=== PATIENT | female | born 1995 | race Caucasian/White ===

== ENCOUNTER 2016-09-24 00:39 | Emergency (ER) | payer OTHER ==
[~2016-09-24] VITALS: Ht 162.6 cm; Wt 62.0 kg
--- NOTE | 2016-09-24 01:40 | PD ---
HPI Chief Complaint: Psychiatric Symptoms Time Seen by Provider: 01:35 (Arsh Palm) Time Seen by Provider: 01:34 (Bradley Ty MD) Travel History International Travel<30 days: No Contact w/Intl Traveler<30days: No Traveled to known affect area: No (Arsh Palm) History of Present Illness HPI 21-year-old white female presents to emergency department under Purvis act by PD. The patient was found heavily intoxicated. She was unable to care for herself. On interviewing the patient they asked whether she was suicidal or not. Patient implied that she was. The patient here denies this. She states that she is visiting from [place]. She is down with her boyfriend. She states that they had gotten . She does admit to drinking heavily. She does not know where she is. She is refusing to cooperate. She is using foul language towards the staff and myself. She states that she would like to go home. I explained to there that she is here under Purvis act. The patient still refusing to cooperate. She denies any toxic ingestions. The patient denies any suicidal or homicidal ideation. (Arsh Palm) HPI Please refer to advanced practitioner notes. (Bradley Ty MD) [facility] Past Medical History Medical History: Denies Significant Hx Tetanus Vaccination: Unknown ?: Unknown (Arsh Palm) Past Surgical History Surgical History: Unable to Obtain (Arsh Palm) Social History Alcohol Use: Yes (4 times a day) (Arsh Palm) Tobacco Use: No (unable to determine pt has left) (Bradley Ty MD) Allergies-Medications (Allergen,Severity, Reaction): Coded Allergies: Sulfa (Verified Allergy, Severe, 09/24/16) Review of Systems ROS Limitations: Intoxication, Uncooperative (Arsh Palm) Physical Exam Narrative GENERAL: Well-nourished, well-developed patient. The patient is intoxicated. Her speech is slurred. She is uncooperative. There is no evidence of trauma. SKIN: Warm and dry. HEAD: Normocephalic and atraumatic. EYES: No scleral icterus. No injection or drainage. ENT: No nasal drainage noted. Mucous membranes pink. Airway patent. NECK: Supple, trachea midline. Moves head freely without obvious discomfort. CARDIOVASCULAR: Regular rate and rhythm without murmurs, gallops, or rubs. RESPIRATORY: Breath sounds equal bilaterally. No accessory muscle use. GASTROINTESTINAL: Abdomen soft, non-tender, nondistended. EXTREMITIES: No cyanosis or edema. BACK: Nontender without obvious deformity. No CVA tenderness. NEURO: Patient is alert and oriented. no sensorimotor deficits. Nonfocal. Slurred speech. Ataxic. PSYCH: No delusions. No auditory or visual hallucinations. (Arsh Palm ) Narrative Please refer to advanced practitioner notes. (Bradley Ty MD) Data Data Orders Complete Blood Count With Diff (09/24/16 01:01) Comprehensive Metabolic Panel (09/24/16 01:01) Drug Screen, Random Urine (09/24/16 01:01) Ed Urine Pregnancytest Poc (09/24/16 01:01) Alcohol (Ethanol) (09/24/16 01:01) Psych Screen (09/24/16 01:01) Diet Regular Basic (09/24/16 Breakfast) (Bradley Ty MD) MDM Medical Decision Making Medical Screen Exam Complete: Yes Emergency Medical Condition: Yes Medical Record Reviewed: Yes Differential Diagnosis MDM: High Differential diagnoses: Schizophrenia, schizoaffective disorder, bipolar, anxiety, depression, adjustment reaction, mood disorder NOS, ODD, depressive disorder NOS, dementia, dementia with agitation, psychosis NOS, substance induced mood disorder, intermittent explosive disorder, Asperger syndrome, infection,electrolyte abnormality, malingering. Narrative Course Mental health screening discussed with the patient. Psychiatric screen ordered. The patient appears to be intoxicated. She is uncooperative and belligerent. There is no evidence of trauma. I suspect this is all alcohol related. The patient will be allowed to rest in the examination room and sober up. The patient will be evaluated by the psych screener in the morning when she appears more sober. I see no reason at this point to force her for laboratory testing. This is intoxication, substance induced mood disorder (Arsh Palm) Medical Screen Exam Complete: Yes Emergency Medical Condition: Yes Differential Diagnosis Please refer to advanced practitioner notes. Narrative Course Please refer to advanced practitioner notes. (Bradley Ty MD) Diagnosis Primary Impression: Alcohol intoxication Qualified Code: F10.129 - Alcohol intoxication, with unspecified complication Additional Impression: Substance induced mood disorder Condition: Stable ArpitaArsh BEAN Sep 24, 2016 01:40 Bradley Ty MD Sep 29, 2016 19:12 Basophils (%) (Auto) 0.5 % Neutrophils # (Auto) 4.6 TH/MM3 Lymphocytes # (Auto) 2.3 TH/MM3 Monocytes # (Auto) 0.3 TH/MM3 Eosinophils # (Auto) 0.0 TH/MM3 Basophils # (Auto) 0.0 TH/MM3 CBC Comment DIFF FINAL Differential Comment Sodium Level 144 MEQ/L Potassium Level 3.9 MEQ/L Chloride Level 109 MEQ/L Carbon Dioxide Level 24.4 MEQ/L Anion Gap 11 MEQ/L Blood Urea Nitrogen 4 MG/DL Creatinine 0.70 MG/DL Estimat Glomerular Filtration 105 ML/MIN Rate Random Glucose 93 MG/DL Calcium Level 8.9 MG/DL Total Bilirubin 0.4 MG/DL Aspartate Amino Transf 22 U/L (AST/SGOT) Alanine Aminotransferase 23 U/L (ALT/SGPT) Alkaline Phosphatase 87 U/L Total Protein 8.5 GM/DL Albumin 4.7 GM/DL Urine Opiates Screen NEG Urine Barbiturates Screen NEG Urine Amphetamines Screen NEG Urine Benzodiazepines Screen NEG Urine Cocaine Screen NEG Urine Cannabinoids Screen NEG Ethyl Alcohol Level 235 MG/DL MDM Medical Decision Making Medical Screen Exam Complete: Yes Emergency Medical Condition: Yes Medical Record Reviewed: Yes Differential Diagnosis MDM: High Differential diagnoses: Schizophrenia, schizoaffective disorder, bipolar, anxiety, depression, adjustment reaction, mood disorder NOS, ODD, depressive disorder NOS, dementia, dementia with agitation, psychosis NOS, substance induced mood disorder, intermittent explosive disorder, Asperger syndrome, infection,electrolyte abnormality, malingering. Narrative Course Mental health screening discussed with the patient. Psychiatric screen ordered. The patient appears to be intoxicated. She is uncooperative and belligerent. There is no evidence of trauma. I suspect this is all alcohol related. The patient will be allowed to rest in the examination room and sober up. The patient will be evaluated by the psych screener in the morning when she appears more sober. I see no reason at this point to force her for laboratory testing. This is intoxication, substance induced mood disorder Diagnosis Primary Impression: Alcohol intoxication Qualified Code: F10.129 - Alcohol intoxication, with unspecified complication Additional Impression: Substance induced mood disorder Condition: Arsh Marinelli Sep 24, 2016 01:40 Condition: Arsh Marinelli Sep 24, 2016 01:40
[2016-09-24 02:00] VITALS: BP 118/77; PULSE 108; RESP 18; O2SAT 97
[2016-09-24 03:50] LABS: AUTOMATED NEUTROPHIL # 4.6 TH/MM3 (1.8-7.7); BASOPHIL % 0.5 % (0.0-2.0); EOSINOPHIL % 0.6 % (0.0-4.0); HEMATOCRIT 43.2 % (35.0-46.0); HEMO FLAGS DIFF FINAL; LYMPH % 31.4 % (9.0-44.0); LYMPHOCYTE # 2.3 TH/MM3 (1.0-4.8); MEAN CELL VOLUME 82.3 FL (80.0-100.0); MEAN CORPUSCULAR HEMOGLOBIN 28.6 PG (27.0-34.0); MEAN CORPUSCULAR HGB CONC 34.8 % (32.0-36.0); MONO % 4.2 % (0.0-8.0); NEUT % 63.3 % (16.0-70.0); PLATELET COUNT 250 TH/MM3 (150-450); RED BLOOD COUNT 5.25 MIL/MM3 (4.00-5.30); RED CELL DISTRIBUTION WIDTH 12.3 % (11.6-17.2); WHITE BLOOD COUNT 7.2 TH/MM3 (4.0-11.0)
[2016-09-24 03:56] LABS: AMPHETAMINE, URINE NEG (NEG); BARBITURATES, URINE NEG (NEG); COCAINE, URINE NEG (NEG)
[2016-09-24 04:12] LABS: ALT (GPT) 23 U/L (10-53); ANION GAP 11 MEQ/L (5-15); AST (GOT) 22 U/L (15-37); BICARBONATE 24.4 MEQ/L (21.0-32.0); BLOOD UREA NITROGEN 4 MG/DL (7-18); CHLORIDE 109 MEQ/L (98-107); GLOMERULAR FILTRATION RATE 105 ML/MIN (>89); POTASSIUM 3.9 MEQ/L (3.5-5.1); SODIUM (NA) 144 MEQ/L (136-145)
[2016-09-24 04:14] LABS: ALKALINE PHOSPHATASE 87 U/L (45-117); TOTAL BILIRUBIN ADULT 0.4 MG/DL (0.2-1.0)
[2016-09-24 06:28] VITALS: BP 112/57; PULSE 84; RESP 18; O2SAT 100
--- NOTE | 2016-09-24 11:19 | MB ---
cc: THOMPSONCALLY NewmanROLANDO DATE OF CONSULTATION 09/24/2016 REASON FOR CONSULTATION This is a 21-year-old white female who was admitted under a Purvis act because she was highly intoxicated and could not make decision or answer questions clearly. When subject was asking if she wanted to harm herself, she gave a long pause and then said yes, yes and she was brought here. This morning, she claimed that she was feeling sorry for what she did. She claimed that she has no problem drinking and she was here visiting her boyfriend's family. She is from [facility] and wants to go back [place]. She denied any suicidal and/or homicidal ideation, intentions or plans. She denied any auditory or visual hallucinations. She denied any paranoid delusion. She denied any shaking or nervousness or anxiety. She was apologetic for her behavior. Yesterday she got into an argument with her boyfriend at a restaurant and the police were called in. The patient claimed that she never had any previous history of suicide attempt or inpatient psychiatric hospitalization. She has seen a therapist once. As a child, she was taking Concerta, but as an adult, she is not taking it and trying to do without it. BACKGROUND HISTORY The patient was born in [place]. She is the middle child with two sisters. She is close to both of her parents. Her childhood was described as happy. She denied any physical, verbal or sexual abuse growing up. She did finish high school and she is in her third year of college. She has been working at [employer]. She started to drink when she was about 15. She denies any history of mood swings. Denies any history of auditory or visual hallucinations. Denies any suicide attempt in the past or legal difficulty. PAST PSYCHIATRIC HISTORY She said she has seen a therapist in the past. Denies any manic depression or mood swings. FAMILY HISTORY Positive for probably alcoholism, but she is not sure. MENTAL STATUS EXAM This is a 21-year-old white female who looks about the same as her stated age. She was alert and oriented x3, cooperative, casually dressed. Her speech was slow without any evidence of loose associations or flight of ideas or pressured speech. Her mood was described as feeling sorry for what she did and wants to go home. Her boyfriend is waiting out in the waiting area. She denied any suicidal and/or homicidal ideation, intentions or plans. Denied any auditory or visual hallucinations. There was no evidence of any form of paranoid delusion. She seems to be of average intelligence with poor recent memory. Her insight is fair and her judgment seems to be okay on hypothetical situation. IMPRESSION Alcohol induced mood disorder. RECOMMENDATIONS At the present time, the patient denies any suicidal and/or homicidal ideation, intentions or plan. Denies any auditory or visual hallucinations. Her thoughts are organized and she is willing to follow up as an outpatient. No behavior or management problem reported or exhibited here. In my opinion, the patient does not meet the Purvis ACT criteria so I will lift the Purvis act and discharge the patient to be followed up as an outpatient. She was strongly advised to abstain from any alcohol use and/or abuse and follow up with AA. Rolando CAUSEY /11:01 AM /11:15 AM
== END 2016-09-24 12:00 | disposition home or self-care (01) ==
LOC: NEPA 00:39 → NEPJ 12:00
DX: F10.129 Alcohol abuse with intoxication, unspecified (principal); F19.94 Other psychoactive substance use, unspecified with psychoactive substance-induced mood disorder; F10.94 Alcohol use, unspecified with alcohol-induced mood disorder
CPT/HCPCS: 80053; 80307; 80320; 84703; 85025; 99283